=== PATIENT | male | born 1960 | race American Indian/Alaskan Native ===

== ENCOUNTER 2019-04-08 09:59 | Outpatient (CLI) | payer OTHER ==
--- NOTE | 2019-04-08 10:59 | XRay Report ---
CERVICAL SPINE 3 VIEWS INDICATION / CLINICAL INFORMATION: NECK PAIN. COMPARISON: None available. FINDINGS: VERTEBRAE: No acute fracture. No significant malalignment. DISC SPACES / FACET JOINTS:Multilevel degenerative disc disease from C3-4 through C6-7. Large anterio r osteophytes are most prominent at C5-6 and C6-7. Minimal facet joint disease. PARASPINAL SOFT TISSUES:No significant abnormality. ADDITIONAL FINDINGS: The head is tilted to the left on both AP and odontoid views. The odontoid is no t well seen on the open-mouth view.. IMPRESSION: 1. Extensive multilevel degenerative disc disease. 2. No acute change. 3. Tilting of the head to the left suggests fixed rigidity of the spine. Signer Name: Justin Rashid MD Signed: 04/08/2019 10:54 AM Workstation Name: [id number]
--- NOTE | 2019-04-08 11:18 | XRay Report ---
LUMBOSACRAL SPINE, 3 VIEWS INDICATION: LOW BACK PAIN. COMPARISON: None. IMPRESSION: Normal bone mineralization and alignment. Mild discogenic DJD is noted at L3-4 and L4-5 . There is mild diffuse facet arthropathy. No acute osseous or soft tissue abnormality. Signer Name: Hugh Hampton Jr, MD Signed: 04/08/2019 11:14 AM Workstation Name: [id number]
== END 2019-04-08 10:00 | disposition home or self-care (01) ==
LOC: XRAY 09:59
PROVIDERS: ATTEND Internal Medicine
DX: M47.816 Spondylosis without myelopathy or radiculopathy, lumbar region (principal); M47.812 Spondylosis without myelopathy or radiculopathy, cervical region; G03.9 Meningitis, unspecified; R56.9 Unspecified convulsions
CPT/HCPCS: 72040; 72100